=== PATIENT | female | born 1940 | race Caucasian/White ===

== ENCOUNTER 2017-03-18 13:30 | Emergency (ER) | payer OTHER ==
[2017-03-18 13:41] VITALS: BP 133/53; PULSE 79; TEMP 98.4; BMI 23.9
--- NOTE | 2017-03-18 16:04 | PDOC ---
History of Present Illness - General Chief Complaint: Urinary Problem Stated Complaint: VAGINAL PAIN, URINARY RETENTION History Source: Patient, Family Exam Limitations: No Limitations, Language Barrier - History of Present Illness Initial Comments: 03/18/17 16:06 The patient is a 75 yo F with PMH of colorectal CA 2005(remission), bladder elevation caprice 1979, IDDM, HTN, HLD and who presents to the ED with dysuria, urinary retention and pelvic pain. Her symptoms started a month and a half ago along with f/c. She saw a urologist Dr Lacey a month ago, had urine checked, and had a scan; was told she has a small stone in bladder and was not given abx. she then saw her PCP Dr Haro who also checked urine and prescribed Cipro 5 day course. she just started her 3rd refill of Cipro 500 bid w/o alleviation of symptoms. Her pelvic pain is radiating to L flank, is constant, dull, 10/10. She no longer has f/c. She denies chest pain, sob, cough, abd pain, n/v diarrhea , constipation, h/a. she occasionally has blood streaked stool. Last urology visit March 12 PCP: Dr Haro 03/18/17 17:08 03/18/17 17:17 03/18/17 17:21 03/18/17 17:29 03/18/17 18:42 Past History - Past Medical History Allergies/Adverse Reactions: Allergies Allergy/AdvReac Type Severity Reaction Status Date / Time No Known Drug Allergies Allergy Verified 03/18/17 13:37 Lactose Intolerance Allergy Unknown Uncoded 03/18/17 13:37 Home Medications: Ambulatory Orders Insulin Glargine,Hum.rec.anlog [Lantus (10mL VIAL) -] 48 units SQ DAILY Lisinopril [Prinivil -] 40 mg PO DAILY 01/13/14 Meclizine HCl 25 mg PO Q6H PRN #15 tablet 12/23/15 Gabapentin [Neurontin -] 100 mg PO Q8H PRN #90 capsule 03/20/16 Diabetes: Yes GI Disorders: No Disorders: No HTN: Yes Hypercholesterolemia: Yes Liver Disease: No Thyroid Disease: No - Surgical History Cholecystectomy: Yes - Immunization History Immunization Up to Date: Yes - Psycho/Social/Smoking Cessation Hx Anxiety: No Suicidal Ideation: No Smoking History: Never smoked Have you smoked in the past 12 months: No Information on smoking cessation initiated: No Hx Alcohol Use: No Drug/Substance Use Hx: No Substance Use Type: None Hx Substance Use Treatment: No Review of Systems - Review of Systems Able to Perform ROS?: Yes Is the patient limited Bhutanese proficient: Yes Constitutional: Yes: Chills. No: Fever, Night Sweats, Weakness, Unexplained wgt Loss HEENTM: No: Blurred Vision, Nose Congestion, Throat Pain, Difficulty Swallowing Respiratory: No: Cough, Orthopnea, Shortness of Breath, Hemoptysis Cardiac (ROS): No: Chest Pain, Edema, Lightheadedness, Palpitations ABD/GI: Yes: Blood Streaked Bowels. No: Abdominal Distended, Diarrhea, Rectal Bleeding, Abdominal cramping, Tarry Stools : Yes: Burning, Dysuria, Flank Pain (Left), Pain (pelvis, L flank), Other ( retention). No: Hematuria Musculoskeletal: No: Back Pain Integumentary: No: Erythema, Flushing Neurological: No: Headache, Numbness, Paresthesia Psychiatric: No: Anxiety, Depression Endocrine: No: Increased Urine, Change in Weight Hematologic/Lymphatic: No: Anemia, Blood Clots, Easy Bleeding, Easy Bruising All Other Systems: Reviewed and Negative *Physical Exam - Vital Signs Last Vital Signs Temp Pulse Resp BP Pulse Ox 98.4 F 79 18 133/53 100 03/18/17 13:38 03/18/17 13:38 03/18/17 13:38 03/18/17 13:38 03/18/17 13:38 - Physical Exam Comments: 03/18/17 17:34 GENERAL: NAD AAOx3 HEENT: PERRLA EOMI sclera anicteric, conjunctiva clear. CV: irregularly irregular s1s2 PULM cta b/l GI: nondistended, soft, mod tender suprabubic region, no mass, normoactive bowel sounds, L CVA tenderness NEURO: CN grossly intact 03/18/17 17:39 ED Treatment Course - LABORATORY CBC & Chemistry Diagram: 03/18/17 17:20 03/18/17 17:20 Medical Decision Making - Medical Decision Making 03/18/17 17:40 patient presents with urinary retention and possible UTI, failed month of PO abx therapy -UA ordered: negative but expected after abx treatment and does not r/o infection -urine culture collected -cbc diff, cmp -give IV rocephin, 500 cc bolus NS IV -bladder and kidney US -insert newby for retention -ultram for pain 03/18/17 18:31 03/18/17 18:31 cbm wnl cmp unremarkable (bun/creat wnl) Giving pyridium for bladder spasm 03/18/17 18:38 bladder, kidney US unremarkable. moderate post void residual 03/18/17 18:41 03/18/17 18:55 *DC/Admit/Observation/Transfer Diagnosis at time of Disposition: Pain in pelvis - Discharge Dispostion Disposition: HOME Condition at time of disposition: Good Admit: No - Patient Instructions Additional Instructions: your kidney blood work is normal. There is no sign of infection in the urine. bladder and kidney ultrasound are normal. There is a moderate anount of urine left in bladder after urination which is not very dangerous. uterus has a small amount of fluid in it and open cervix, please follow up with gynecology (this may be source of pain). We are prescribing pyridium to take daily, which will help you urinate. it will turn your urine orange, do not be alarmed. follow up with urology after the [facility] visit. Please return to er if symptoms worsen
[2017-03-18 16:33] LABS: URINE APPEARANCE CLEAR; URINE BILIRUBIN NEGATIVE (NEGATIVE); URINE BLOOD NEGATIVE (NEGATIVE); URINE COLOR COLORLESS; URINE GLUCOSE (UA) NEGATIVE (NEGATIVE); URINE KETONE NEGATIVE (NEGATIVE); URINE LEUK ESTERASE NEGATIVE (NEGATIVE); URINE NITRITE NEGATIVE (NEGATIVE); URINE PROTEIN NEGATIVE (NEGATIVE); URINE UROBILINOGEN NEGATIVE E.U./dl (0.2-1.0)
[2017-03-18] MEDS ORDERED: traMADol HCL 50 MG TABLET PO ONE (16:57)
[2017-03-18] MEDS ORDERED: CEFTRIAXONE 1 MG in DEXTROSE 5%-WATER - 50 ML IVPB ONE (17:12)
[2017-03-18] MEDS ORDERED: traMADol HCL 50 MG TABLET ONE (17:18)
[2017-03-18] MEDS ORDERED: CEFTRIAXONE 50 ML ONE (17:18)
[2017-03-18] MEDS ORDERED: KETOROLAC TROMETHAMINE 10 MG TABLET PO ONE (17:21)
[2017-03-18 17:29] LABS: BASOPHIL 0.8 % (0-2.0); MCH 25.4 pg (25.7-33.7); MCHC 32.8 g/dl (32.0-36.0); MEAN CELL VOLUME 77.6 fl (80-96); MEAN PLT VOLUME 7.9 fl (7.5-11.1); NEUTROPHILS 59.7 % (42.8-82.8); PLATELET COUNT 205 K/MM3 (134-434); RDW 26.1 % (11.6-15.6); WHITE BLOOD COUNT 6.3 K/mm3 (4.0-10.0)
[2017-03-18] MEDS ORDERED: ONDANSETRON 4 MG/2 ML VIAL IVPUSH ONE (17:31)
[2017-03-18] MEDS ORDERED: ONDANSETRON 4 MG/2 ML VIAL ONE (17:33)
[2017-03-18] MEDS ORDERED: SODIUM CHLORIDE 500 ML IV STA (17:37)
[2017-03-18 18:02] LABS: ALBUMIN 3.8 g/dl (3.4-5.0); ALK PHOS 60 U/L (45-117); ANION GAP 9 (8-16); BILIRUBIN,TOTAL 0.2 mg/dL (0.2-1.0); CALCIUM 9.3 mg/dL (8.5-10.1); CO2 25 mmol/L (21-32); COCKROFT - GAULT 68.2975; CREATININE 0.7 mg/dL (0.55-1.02); GLUCOSE,RANDOM 119 mg/dL (74-106); SGOT/AST 27 U/L (15-37); SGPT/ALT 32 U/L (12-78); TOT PROT 7.2 g/dl (6.4-8.2)
[2017-03-18] MEDS ORDERED: PHENAZOPYRIDINE HCL 100 MG TABLET (FP) PO ONE (18:29)
[2017-03-18] MEDS ORDERED: PHENAZOPYRIDINE HCL 100 MG TABLET (FP) ONE (18:50)
[2017-03-18 18:57] LABS: ANISOCYTOSIS 3+; PLATELET ESTIMATE ADEQUATE (NORMAL)
== END 2017-03-18 19:05 | disposition home or self-care (01) ==
LOC: JER 13:30
PROC: 0T9B70Z Drainage of Bladder with Drainage Device, Via Natural or Artificial Opening (ICD-10-PCS; principal; 2017-03-18)
DX: R10.2 Pelvic and perineal pain (principal); I10 Essential (primary) hypertension; E11.9 Type 2 diabetes mellitus without complications; E78.00 Pure hypercholesterolemia, unspecified; Z79.4 Long term (current) use of insulin
CPT/HCPCS: 51702; 76775-TC; 76856-TC; 80053; 81003; 85025; 87086; 99282-25

== ENCOUNTER 2017-03-23 12:39 | Emergency (ER) | payer OTHER ==
[2017-03-23 12:48] VITALS: BP 153/65; PULSE 76; TEMP 98.3; BMI 23.6
== END 2017-03-23 13:17 | disposition left against medical advice (07) ==
LOC: JER 12:39
DX: Z53.21 Procedure and treatment not carried out due to patient leaving prior to being seen by health care provider (principal)
CPT/HCPCS: 99281-25

== ENCOUNTER 2017-05-27 08:48 | Emergency (ER) | payer OTHER ==
--- NOTE | 2017-05-27 09:30 | PDOC ---
Attending Attestation - Resident Resident Name: VenanciochuckToby - ED Attending Attestation I have performed the following: I have examined & evaluated the patient, The case was reviewed & discussed with the resident, I agree w/resident's findings & plan, Exceptions are as noted - HPI HPI: 05/27/17 09:33 76yo F hx recent hysterectomy 2/2 endometrial carcinoma ([place] 05/10), colorectal ca in remission, HTN, IDDM, HL p/w vomiting since last night. Pt was in her USOH until last night when she began to feel nauseous with epigastric abdominal pain after vomiting. Had 3-4 episodes of NBNB emesis. Daughter reports she was up heaving the entire night. Has a gluteal drain but patient doesn't know why. Drainage from tube has always been bloody with no changes in quantity over the last few days. +dysuria. +subjective fevers and chills. Denies CP, SOB, headache, focal weakness, rashes, diarrhea. - Physicial Exam PE: 05/27/17 09:46 GENERAL: Awake, alert, and fully oriented, in no acute distress HEAD: No signs of trauma EYES: PERRLA, EOMI, sclera anicteric, conjunctiva clear ENT: Auricles normal inspection, hearing grossly normal, nares patent, oropharynx clear without exudates. Moist mucosa NECK: Normal ROM, supple, no lymphadenopathy, JVD, or masses LUNGS: Breath sounds equal, clear to auscultation bilaterally. No wheezes, and no crackles HEART: Regular rate and rhythm, normal S1 and S2, no murmurs, rubs or gallops ABDOMEN: large vertical central incision appears c/d/i, soft, diffuse ttp, no rebound or guarding, proximal gluteal tube with 20ccs serosanguinous drainage EXTREMITIES: Normal range of motion, no edema. No clubbing or cyanosis. No cords, erythema, or tenderness NEUROLOGICAL: Normal speech, cranial nerves intact, negative pronator drift, 5/ 5 strength in all 4 extremities, normal sensation to light touch in all 4 extremities, normal cerebellar exam, normal gait, normal reflexes and tone SKIN: Warm, Dry, normal turgor, no rashes or lesions noted. Rectal temp 99.6 Twelve-lead EKG was performed and reviewed by me: Sinus tachycardia, rate 116, normal axis. No ST changes or TWI - Medical Decision Making 05/27/17 09:47 76-year-old female with recent hysterectomy secondary to endometrial cancer at once if your status post perirectal drain presents with abdominal pain associated with nausea, vomiting, fevers, and chills. Exam with diffuse abdominal tenderness to palpation but no rebound or guarding. Presentation concerning for intra-abdominal abscess or postop infection. -labs -blood/urine cx -CXR -CTAP -call [facility] for collateral -pain meds, antiemetics -reassess 05/27/17 16:40 CT scan with high-grade SBO with transition point in the right lower quadrant. Patient will be transferred to [facility] for further management. An NG tube was placed here in the emergency department for symptomatic relief as patient began to have emesis. She was also given another dose of Zofran. Transport is currently being arranged and transfer forms have been filled out by Dr. Boggs.
[2017-05-27 09:34] VITALS: BMI 21.4
--- NOTE | 2017-05-27 09:46 | PDOC ---
History of Present Illness - General Stated Complaint: VOMITING Time Seen by Provider: 05/27/17 08:54 - History of Present Illness Initial Comments: 05/27/17 09:46 Historian: daughter as pt is non-kinyarwanda speaker 76F w/ hx of endometrial carcinoma s/p hysterectomy on 04/29, colorectal carcinoma in 2006 in remission, HTN, IDDM, HLD presenting with nausea, several episodes of non-bloody, non-bilious emesis, and severe abdominal pain worst after emesis since last night. Pt reports some recent subjective fevers and chills, lightheadedness, and dysuria, and she denies constipation, diarrhea, SOB , chest pain, and urinary urgency and frequency. 05/27/17 09:51 05/27/17 10:00 Past History - Past Medical History Allergies/Adverse Reactions: Allergies Allergy/AdvReac Type Severity Reaction Status Date / Time No Known Drug Allergies Allergy Verified 05/27/17 10:04 Lactose Intolerance Allergy Unknown Uncoded 05/27/17 10:04 Home Medications: Ambulatory Orders Atorvastatin Ca [Lipitor] 20 mg PO HS 05/27/17 Enoxaparin [Lovenox -] 40 mg SQ DAILY 05/27/17 Metronidazole 500 mg PO Q6H 05/27/17 Oxycodone HCl/Acetaminophen [Percocet 5-325 mg Tablet] 1 tab PO Q6H 05/27/17 Diabetes: Yes GI Disorders: No Disorders: No HTN: Yes Hypercholesterolemia: Yes Liver Disease: No Thyroid Disease: No Comment:: 05/27/17 09:53 PMH: osteoporosis, anemia PSH: cholecystecomy, bladder elevation surgery in 1979 Meds: oxycontin for pain Allergies: lactose Social Hx: denies toxic habits 05/27/17 09:54 - Surgical History Cholecystectomy: Yes - Immunization History Immunization Up to Date: Yes - Psycho/Social/Smoking Cessation Hx Anxiety: No Suicidal Ideation: No Smoking History: Never smoked Have you smoked in the past 12 months: No Hx Alcohol Use: No Drug/Substance Use Hx: No Substance Use Type: None Hx Substance Use Treatment: No Review of Systems - Review of Systems Comments:: 05/27/17 09:56 GENERAL: + fever, chills, no night sweats, or weakness. HEAD, EYES, EARS, NOSE AND THROAT: No change in vision, ear pain, or sore throat CARDIOVASCULAR: No chest pain or palpitations RESPIRATORY: No cough, wheezing, or hemoptysis. GASTROINTESTINAL: + nausea, + vomiting, no diarrhea, constipation, or blood in the stool. GENITOURINARY: + dysuria, no frequency, or urgency MUSCULOSKELETAL: No joint or muscle swelling or pain. SKIN: No rashes or pruritis ENDOCRINE: No increased thirst. No abnormal weight change NEUROLOGIC: No headache, + dizziness, no loss of consciousness, or change in strength/sensation. *Physical Exam - Physical Exam Comments: 05/27/17 09:58 GENERAL: Awake, alert, and fully oriented, in distress HEAD: normocephalic, atraumatic HEENT: PERRLA, EOMI NECK: Normal ROM, supple, no lymphadenopathy, JVD, or masses HEART: tachycardic, regular rhythm, normal S1 and S2, no murmurs, rubs or gallops, peripheral pulses normal and equal bilaterally. LUNGS: CTAB, no wheezing, no rales ABDOMEN: vertical incision that is clean and dry without erythema, soft, diffusely tender to palpation, normoactive bowel sounds. There is an inserted catheter adjacent to the anus draining 20 cc of bloody fluid with purulent material clogging the catheter. EXTREMITIES: Normal range of motion, no edema. SKIN: Warm, dry, no rashes or lesions noted. NEUROLOGICAL: Cranial nerves II through XII grossly intact. normal speech, no focal sensorimotor deficits 05/27/17 10:01 ED Treatment Course - LABORATORY CBC & Chemistry Diagram: 05/27/17 09:50 05/27/17 09:50 Medical Decision Making - Medical Decision Making 05/27/17 10:00 6F w/ hx of endometrial carcinoma s/p hysterectomy on 04/29, colorectal carcinoma in 2006 in remission, HTN, IDDM, HLD presenting with nausea, several episodes of non-bloody, non-bilious emesis, and severe abdominal pain worst after emesis since last night. 05/27/17 10:03 CBC: wbc of 8.2 CMP: Na of 131, K of 5.1 Lactate: 0.9 UA: 2+ glucose with trace ketones Ucx: pending CXR: increased markings in left costophrenic angle possibly infectious EKG: NSR CT abdomen/pelvis: small bowel obstruction Pt given IV fluids, zofran, and morphine. Spoke with Dr. Perez ([employer] surgeon at [facility] who performed the hysterectomy) to receive collateral info. She said that pt had anal cancer before endometrial cancer. An abscess developed after the hysterectomy, and an IR guided drainage catheter was placed, and pt was given IV and then oral abx. Pt also developed C. diff, was given flagyl. Pt was scheduled to have catheter removed tomorrow. If pt needs admission, she states that she is ok with pt being transferred to [facility] [place]. Spoke with MD Muriel Negron at [facility], who communicated with Dr. Perez that the CT scan shows an SBO. She informed me that Dr. Perez accepted transfer of the patient back to [facility] on 11S [employer]MBAL[employer] ONC. 05/27/17 10:12 05/27/17 16:38 05/27/17 17:46 *DC/Admit/Observation/Transfer Diagnosis at time of Disposition: Small bowel obstruction - Discharge Dispostion Disposition: TRANSFER ACUTE CARE/OTHER HOSP Condition at time of disposition: Stable Admit: No - Referrals Referrals: Matt Haro MD [Primary Care Provider] - - Post Discharge Activity Work/School Note: Back to Work, Parent(s) Back to Work Note - Attestations Physician Attestion: 05/27/17 17:45 I, Dr. Toby Boggs, attest that this document has been prepared under my direction and personally reviewed by me in its entirety. I further attest, that it accurately reflects all work, treatment, procedures and medical decision -making performed by me.
[2017-05-27] MEDS ORDERED: SODIUM CHLORIDE 500 ML IV STA (09:49)
[2017-05-27] MEDS ORDERED: morphine CARPU-JECT 4 MG/1 ML DISP.SYRIN IVPUSH ONE (09:50)
[2017-05-27] MEDS ORDERED: ONDANSETRON 4 MG/2 ML VIAL IVPUSH ONE (09:51)
[2017-05-27 10:11] LABS: BASOPHIL 0.6 % (0-2.0); EOSINOPHIL 2.1 % (0-4.5); MCH 29.1 pg (25.7-33.7); MCHC 34.3 g/dl (32.0-36.0); MEAN CELL VOLUME 84.7 fl (80-96); MEAN PLT VOLUME 8.4 fl (7.5-11.1); NEUTROPHILS 76.3 % (42.8-82.8); PLATELET COUNT 296 K/MM3 (134-434); RDW 15.7 % (11.6-15.6); WHITE BLOOD COUNT 8.2 K/mm3 (4.0-10.0)
[2017-05-27] MEDS ORDERED: morphine CARPU-JECT 10 MG/1 ML DISP.SYRIN ONE ×2 (10:17→15:12)
[2017-05-27 10:29] LABS: ALBUMIN 3.1 g/dl (3.4-5.0); ANION GAP 8 (8-16); BILIRUBIN,TOTAL 0.5 mg/dL (0.2-1.0); CALCIUM 9.5 mg/dL (8.5-10.1); CO2 26 mmol/L (21-32); CREATININE 0.6 mg/dL (0.55-1.02); SGPT/ALT 22 U/L (12-78); TOT PROT 7.4 g/dl (6.4-8.2)
[2017-05-27 10:31] LABS: ALK PHOS 62 U/L (45-117); TROPONIN I < 0.02 ng/ml (0.00-0.05)
[2017-05-27 10:36] LABS: CPK 112 IU/L (26-192); SGOT/AST 43 U/L (15-37)
[2017-05-27 10:41] LABS: GLUCOSE,RANDOM 315 mg/dL (74-106)
[2017-05-27] MEDS ORDERED: INSULIN REGULAR HUMAN 100 UNITS/ML *VIAL IVPUSH ONE (10:44)
--- NOTE | 2017-05-27 10:58 | EKG ---
Test Reason : Blood Pressure : / mmHG Vent. Rate : 116 BPM Atrial Rate : 116 BPM P-R Int : 142 ms QRS Dur : 076 ms QT Int : 332 ms P-R-T Axes : 034 -22 048 degrees QTc Int : 461 ms SINUS TACHYCARDIA OTHERWISE NORMAL ECG WHEN COMPARED WITH ECG OF 23-DEC-2015 21:02, NO SIGNIFICANT CHANGE WAS FOUND Confirmed by THERESA VOGT MD ([id number]) on 05/27/2017 10:57:38 AM Referred By: Confirmed By:THERESA VOGT MD
[2017-05-27] MEDS ORDERED: morphine CARPU-JECT 2 MG/1 ML DISP.SYRIN IVPUSH ONE ×2 (14:29→16:52)
[2017-05-27] MEDS ORDERED: PROMETHAZINE HCL 25 MG/1 ML VIAL IVPUSH ONE (14:32)
[2017-05-27 14:52] LABS: URINE APPEARANCE CLEAR; URINE BILIRUBIN NEGATIVE (NEGATIVE); URINE BLOOD NEGATIVE (NEGATIVE); URINE COLOR LTYELLOW; URINE GLUCOSE (UA) 2+ (NEGATIVE); URINE KETONE TRACE (NEGATIVE); URINE LEUK ESTERASE TRACE (NEGATIVE); URINE NITRITE NEGATIVE (NEGATIVE); URINE PROTEIN NEGATIVE (NEGATIVE); URINE UROBILINOGEN NEGATIVE mg/dL (0.2-1.0)
[2017-05-27] MEDS ORDERED: PROMETHAZINE HCL 25 MG/1 ML VIAL ONE (15:11)
[2017-05-27 15:17] LABS: URINE HYALINE CAST 1 /lpf; URINE RBC <1 /hpf (0-3); URINE WBC 1 /hpf (3-5)
[2017-05-27] MEDS ORDERED: LABETALOL HCL 200 MG TABLET (FP) PO ONE (17:53)
[2017-05-27 19:29] VITALS: BP 162/73; PULSE 108; TEMP 97.7
== END 2017-05-27 19:39 | disposition short-term general hospital (02) ==
LOC: JER 08:48
PROC: 3E0337Z Introduction of Electrolytic and Water Balance Substance into Peripheral Vein, Percutaneous Approach (ICD-10-PCS; principal; 2017-05-27)
PROC: 3E0333Z Introduction of Anti-inflammatory into Peripheral Vein, Percutaneous Approach (ICD-10-PCS; 2017-05-27)
PROC: 3E033VG Introduction of Insulin into Peripheral Vein, Percutaneous Approach (ICD-10-PCS; 2017-05-27)
PROC: 3E033GC Introduction of Other Therapeutic Substance into Peripheral Vein, Percutaneous Approach (ICD-10-PCS; 2017-05-27)
DX: K56.69 Other intestinal obstruction (principal); I10 Essential (primary) hypertension; E11.9 Type 2 diabetes mellitus without complications; Z79.4 Long term (current) use of insulin; E78.00 Pure hypercholesterolemia, unspecified; Z85.038 Personal history of other malignant neoplasm of large intestine; Z85.41 Personal history of malignant neoplasm of cervix uteri
CPT/HCPCS: 36415; 71010-TC; 74177-TC; 80053; 81003; 81015; 83605; 84484; 85025; 87040; 87086; 93005; 93010; 96361; 96374; 96375; 99285-25